=== PATIENT | female | born 1930 | race Caucasian/White ===

== ENCOUNTER → 2016-09-09 | Outpatient (CLI) | payer MEDICARE, BC ==
[~2016-09-09] MED LIST: ALEVE220 MG PO; ATIVAN0.5 MG PO; CARDI-OMEGA1000 MG PO; CHILDREN'S ASPI81 M1 PO; DUO-KAPS1 CAP PO; METOPROLOL SUCC25 MG PO; TYLENOL 650MG650 M2 PO; ZOCOR 20MG20 MG PO
== END ==
LOC: VAS 16:52
DX: R01.1 Cardiac murmur, unspecified (principal); I35.8 Other nonrheumatic aortic valve disorders; I05.9 Rheumatic mitral valve disease, unspecified

== ENCOUNTER → 2018-10-12 | Outpatient (CLI) | payer MEDICARE, BC ==
[2014-05-30 11:41] VITALS: BP 159/67
== END ==
LOC: RAD 15:55
DX: I35.1 Nonrheumatic aortic (valve) insufficiency (principal)

== ENCOUNTER → 2019-02-18 | Outpatient (CLI) | payer MEDICARE, BC ==
[2014-05-30 11:41] VITALS: BP 159/67
== END ==
LOC: RAD 10:43
DX: I10 Essential (primary) hypertension (principal); R42 Dizziness and giddiness

== ENCOUNTER → 2019-04-21 | Outpatient (CLI) | payer MEDICARE, BC ==
[2014-05-30 11:41] VITALS: BP 159/67
== END ==
LOC: RAD 13:18 → MAMMO 13:45 → RAD 13:45
DX: Z13.820 Encounter for screening for osteoporosis (principal); M85.851 Other specified disorders of bone density and structure, right thigh; M85.852 Other specified disorders of bone density and structure, left thigh; Z78.0 Asymptomatic menopausal state

== ENCOUNTER 2020-11-28 14:30 | Outpatient (RCR) | payer MEDICARE, BC ==
[2014-05-30 11:41] VITALS: BP 159/67
[2021-07-03] MEDS ORDERED: LOSARTAN POTASS25 MG PO (08:40)
[2021-07-03] MEDS ORDERED: TRAMADOL 50 MG TAB PO (11:25)
[2021-07-08] MEDS ORDERED: NORCO 325 MG-51 TA1 PO (03:04)
== END 2021-02-14 ==
LOC: PT
DX: M54.42 Lumbago with sciatica, left side (principal)